=== PATIENT | female | born 1950 | race Caucasian/White ===

== ENCOUNTER 2020-08-17 15:29 | Inpatient (IN) | payer MEDICARE ==
[~2020-08-17] VITALS: Ht 149.9 cm; Wt 72.1 kg
[2020-08-17 18:59] LABS: COVID AG,FIA SOURCE NASOPHARYNGEAL
[2020-08-17 19:11] LABS: BASOPHILS % (AUTO) 0.9 % (0.0-2.0); EOSINOPHILS % (AUTO) 1.9 % (1.0-6.0); HEMATOCRIT 42.6 % (36-46); HEMOGLOBIN 14.4 g/dL (12.0-16.0); LYMPHOCYTES # (AUTO) 2.7 K/uL (1.0-4.8); LYMPHOCYTES % (AUTO) 28.5 % (22.0-44.0); MEAN CORPUSCULAR HEMOGLOBIN 29.3 pg (26.0-34.0); MEAN CORPUSCULAR HGB CONC 33.8 G/dL (31.0-37.0); MEAN CORPUSCULAR VOLUME 87 fL (80-100); MONOCYTES # (AUTO) 0.7 K/uL (0.1-1.0); MONOCYTES % (AUTO) 6.9 % (2.0-9.0); NEUTROPHILS # (AUTO) 5.9 K/uL (1.8-7.7); NEUTROPHILS % (AUTO) 61.8 % (40.0-70.0); PLATELET COUNT (AUTO) 324 K/uL (150-450)
[2020-08-17 19:37] LABS: ANION GAP 11 mmol/L (8-16); CALCIUM, TOTAL 10.1 mg/dL (8.8-10.5); CARBON DIOXIDE 27 mmol/L (22-29); CHLORIDE 102 mmol/L (98-107); CREATININE 0.78 mg/dL (0.60-1.30); GLOMERULAR FILTR. RATE CALC > 60 mL/min (>60); GLUCOSE,RANDOM 89 mg/dL (70-110); POTASSIUM 3.8 mmol/L (3.5-5.1); SODIUM SERUM 140 mmol/L (136-145); UREA NITROGEN, BLOOD 19 mg/dL (7-18)
[2020-08-17 19:40] LABS: AMPHET/METH SCREEN,URINE NEGATIVE (NEGATIVE); BARBITURATE SCREEN, URINE NEGATIVE (NEGATIVE); BENZODIAZEPINES SCREEN,URINE NEGATIVE (NEGATIVE); CANNABINOID SCREEN,URINE NEGATIVE (NEGATIVE); COCAINE SCREEN,URINE NEGATIVE (NEGATIVE); METHADONE SCREEN, URINE NEGATIVE (NEGATIVE); OPIATE SCREEN,URINE NEGATIVE (NEGATIVE)
[2020-08-17 19:42] LABS: PHENCYCLIDINE SCREEN,URINE NEGATIVE (NEGATIVE)
[2020-08-17 19:42] LABS: ALANINE AMINOTRANSFERASE 22 U/L (12-78); ALBUMIN 3.9 g/dL (3.4-5.0); ALKALINE PHOSPHATASE 77 U/L (46-116); ASPARTATE AMINOTRANSFERASE 14 U/L (15-37); BILIRUBIN,TOTAL 0.3 mg/dL (0.1-1.0); TOTAL PROTEIN, SERUM 7.7 g/dL (6.4-8.2)
[2020-08-17] MEDS ORDERED: QUEtiapine FUMARATE 100 MG TABLET PO PRN (20:15)
[2020-08-17] MEDS ORDERED: ZOLPIDEM TARTRATE 10 MG TABLET PO PRN (20:15)
[2020-08-17] MEDS: LORazepam 2 MG TABLET PO PRN (21:01)
[2020-08-17 22:02] VITALS: BP 145/88
[2020-08-18 07:40] LABS: CHOL/HDL RATIO 2.5 (3.9-5.7)
[2020-08-18 08:00] VITALS: BP 167/86
[2020-08-18] MEDS ORDERED: GuaiFENesin/D-METHORPHAN [SUGAR-FREE] 200-20MG/10 ML SYRUP UDCUP PO PRN (08:45)
[2020-08-18] MEDS ORDERED: CloNIDine HCL 0.1 MG TABLET PO PRN (08:45)
[2020-08-18] MEDS ORDERED: MAGNESIUM HYDROXIDE SUSPENSION 30 ML UDCUP PO PRN (08:45)
[2020-08-18] MEDS ORDERED: ONDANSETRON HCL 4 MG TABLET PO PRN (08:45)
[2020-08-18] MEDS ORDERED: MAG HYDROX/AL HYDROX/SIMETH ES 30 ML SUSPENSION UDCUP PO PRN (08:45)
[2020-08-18] MEDS ORDERED: PETROLATUM,WHITE 28 GM JELLY TP PRN (08:45)
[2020-08-18] MEDS ORDERED: IBUPROFEN 400 MG TABLET PO PRN (08:45)
[2020-08-18] MEDS ORDERED: LOPERAMIDE HCL 2 MG CAPSULE PO PRN (08:45)
[2020-08-18] MEDS ORDERED: ACETAMINOPHEN 325 MG TABLET PO PRN (08:45)
[2020-08-18] MEDS ORDERED: DOCUSATE SODIUM 100 MG CAPSULE PO PRN (08:45)
[2020-08-18] MEDS ORDERED: ALBUTEROL SULFATE HFA 90 MCG/PUFF 8 GM INHALER IH PRN (08:45)
[2020-08-18] MEDS ORDERED: NICOTINE 14 MG/24 HOUR PATCH TD PRN (08:45)
[2020-08-18] MEDS: FLUoxetine HCL 20 MG CAPSULE PO SCH (16:35)
[2020-08-18 18:01] VITALS: BP 144/78
[2020-08-18] MEDS: PRAZOSIN HCL 1 MG CAPSULE PO SCH (20:57)
[2020-08-18] MEDS: BusPIRone HCL 10 MG TABLET PO SCH (20:57)
[2020-08-19] MEDS: BuPROPion HCL XL 150 MG ER TABLET PO SCH (09:17)
[2020-08-19] MEDS: BusPIRone HCL 10 MG TABLET PO SCH ×2 (09:17→20:15)
[2020-08-19] MEDS: FLUoxetine HCL 20 MG CAPSULE PO SCH (09:18)
[2020-08-19 09:33] VITALS: BP 135/84
[2020-08-19 12:53] VITALS: BP 142/93
[2020-08-19] MEDS: LORazepam 2 MG TABLET PO PRN (12:54)
[2020-08-19 13:53] VITALS: BP 140/86
[2020-08-19 16:07] VITALS: BP 140/83
[2020-08-19] MEDS: PRAZOSIN HCL 1 MG CAPSULE PO SCH (20:15)
[2020-08-20] MEDS: FLUoxetine HCL 20 MG CAPSULE PO SCH (08:36)
[2020-08-20] MEDS: BusPIRone HCL 10 MG TABLET PO SCH ×2 (08:37→20:17)
[2020-08-20] MEDS: BuPROPion HCL XL 150 MG ER TABLET PO SCH (08:37)
[2020-08-20 08:56] VITALS: BP 149/84
[2020-08-20 18:58] VITALS: BP 142/96
[2020-08-20] MEDS: PRAZOSIN HCL 1 MG CAPSULE PO SCH (20:18)
[2020-08-21 01:10] VITALS: BP 124/80
[2020-08-21] MEDS: LORazepam 2 MG TABLET PO PRN ×2 (04:01→12:06)
[2020-08-21 08:00] VITALS: BP 130/81
[2020-08-21] MEDS: BusPIRone HCL 10 MG TABLET PO SCH (08:32)
[2020-08-21] MEDS: FLUoxetine HCL 20 MG CAPSULE PO SCH (08:32)
[2020-08-21] MEDS: BuPROPion HCL XL 150 MG ER TABLET PO SCH (08:32)
[2020-08-21] MEDS ORDERED: BUPR-93 PO (11:40)
[2020-08-21] MEDS ORDERED: BUSP10TA23 PO (11:41)
[2020-08-21] MEDS ORDERED: PRAZ1 PO (11:41)
[2020-08-21] MEDS ORDERED: FLUO-191 PO (11:41)
== END 2020-08-21 17:10 | disposition home or self-care (01) | DRG 885 ==
LOC: EMS 15:29 → 3EX 20:03
DX: F33.2 Major depressive disorder, recurrent severe without psychotic features (principal); R45.851 Suicidal ideations; F43.12 Post-traumatic stress disorder, chronic; E78.5 Hyperlipidemia, unspecified; E66.3 Overweight; Z68.32 Body mass index [BMI] 32.0-32.9, adult; Z20.822 Contact with and (suspected) exposure to COVID-19; Z79.899 Other long term (current) drug therapy; Z85.3 Personal history of malignant neoplasm of breast; Z90.710 Acquired absence of both cervix and uterus; R03.0 Elevated blood-pressure reading, without diagnosis of hypertension
CPT/HCPCS: 87426; 99285; G0378; G0480